=== PATIENT | female | born 1995 | race Two or more races ===

== ENCOUNTER 2018-01-03 13:14 | Observation (INO) | payer MEDICAID ==
[2018-01-03] MEDS ORDERED: NS 1,000 ML IV ONE (14:07)
[2018-01-03 14:14] LABS: PLATELET COUNT 237 10^3/uL (150-400)
--- NOTE | 2018-01-03 14:20 | EDPHY ---
HPI/HX/ROS/PE/MDM Narrative: CHIEF COMPLAINT: Vaginal bleeding - 17 weeks HISTORY OF PRESENT ILLNESS: The patient is a 22 y/o female, is G2, P1, 17 weeks , with a history of protein S deficiency complaining of vaginal bleeding, onset today. During her previous she had episodes of vaginal bleeding and was found to have protein S deficiency. She was placed on Lovenox injections for this as well as aspirin. During her current , she has had some spotting. She has also lost about [address] Slade at [facility] She was told that there was a placental abnormality which had account for some of her spotting, but was told that there were no abnormalities. She was told to take a baby aspirin but that Lovenox injections were not needed. This morning, she was on a walk when she felt herself start to bleed through her jeans. She is not aware of any passage of tissue. She reports associated lightheadedness. She has had a runny nose for several days but denies any other cold symptoms. She denies cramping or any other associated symptoms. She denies history of preeclampsia. No fever, chills, chest pain, shortness of breath, palpitations, vomiting, diarrhea, urinary complaints, headache. REVIEW OF SYSTEMS: A comprehensive 10 system review of systems is otherwise negative aside from elements mentioned in the history of present illness and medical decision making. PAST MEDICAL HISTORY: Protein S deficiency SOCIAL HISTORY: Partner at bedside, son at bedside, nonsmoker VITAL SIGNS: Reviewed by me GENERAL: Well-developed, well-nourished, resting comfortably in no respiratory distress. HEENT: Atraumatic. Eyes: No icterus, no injection. Mouth: moist mucous membranes. No erythema or lesions. Neck: supple with no adenopathy. LUNGS: Clear to auscultation bilaterally, no wheezes, rhonchi or rales. CARDIAC: Regular rate and rhythm, no rubs, murmurs or gallops. ABDOMEN: Soft, nontender, nondistended, bowel sounds normal. REPRODUCTIVE: Gravid uterus just below the umbilicus. Palpation of uterus causes patient to feel like there is increased bleeding. PELVIC: Normal external genitalia. Scant amount of watery, brown blood is coming from the os and is in the vaginal vault. No tissue. No clots. Os is open to fingertip only. BACK: No CVA tenderness. EXTREMITIES: No trauma. No edema. Range of motion is normal throughout. NEURO: Alert and oriented, grossly nonfocal. SKIN: Warm and dry, no rash. PSYCHIATRIC: Normal mentation, no agitation. ED Course: The patient presents with abrupt onset vaginal bleeding at 17 week . She denies passage of tissue or clots. She had to take Lovenox and aspirin in her previous but was instructed to take just aspirin for this . She has had some spotting in this due to an identified location on ultrasound. Pelvic exam -performed. Plan for CBC, basic metabolic panel, Beta-HCG, ABO/Rh typing, and ultrasound. Pelvic exam does not reveal any products of conception or clot. Patient's cervical os is closed at the time of this examination. Ultrasound was ordered. Patient is O positive. Quant is 52,[phone]. Patient's ultrasound demonstrates a marginal placental abruption with a large hematoma as well as fluid in the vaginal vault consistent with recent or acute placental abruption with bleeding. Patient currently remains hemodynamically stable. She does have increase in the bleeding with any palpation of the uterus or with standing. She also reports increased bleeding after ultrasound was performed. Her course was discussed with the on-call physician from her is support analyst practice, [facility]. Was also discussed with Dr. Garcia, on-call for OBGYN at [facility]. Patient remains hemodynamically stable at this point. She is at 17 weeks and understands that it is not a viable at this point. Patient would prefer to be admitted to the hospital for close observation regarding her ongoing bleeding. She was admitted to OBGYN service. MDM: Differential diagnoses for the patient's symptom complex was considered including but not limited to placental abruption, subchorionic hemorrhage, threatened miscarriage, completed miscarriage, spontaneous miscarriage, missed miscarriage, thromboembolic disease in . - Data Points Imaging Results: Imaging Impressions Obstetrics Ultrasound 01/03/18 14:42 Impression:1. Marginal placental abruption with recent vaginal blood. The cervix remains closed. 2. Single viable intrauterine in cephalic presentation. 3. Size consistent with dates. Results discussed with Dr. Sheree Null at 3:50 PM. Imaging: Discussed imaging studies w/ call taker Radiologist Laboratory Results: Laboratory Results 01/03/18 13:30 01/03/18 13:30 01/03/18 01/03/18 01/03/18 13:30 13:30 13:30 WBC 9.07 10^3/uL 10^3/uL (3.80-9.50) RBC 3.81 10^6/uL L 10^6/uL (4.18-5.33) Hgb 11.9 g/dL L g/dL (12.6-16.3) Hct 32.8 % L % (38.0-47.0) MCV 86.1 fL fL (81.5-99.8) MCH 31.2 pg pg (27.9-34.1) MCHC 36.3 g/dL g/dL (32.4-36.7) RDW 12.9 % % (11.5-15.2) Plt Count 237 10^3/uL 10^3/uL (150-400) MPV 11.2 fL fL (8.7-11.7) Neut % (Auto) 66.4 % % (39.3-74.2) Lymph % (Auto) 24.9 % % (15.0-45.0) [place] % (Auto) 6.9 % % (4.5-13.0) Eos % (Auto) 1.3 % % (0.6-7.6) Baso % (Auto) 0.2 % L % (0.3-1.7) Nucleat RBC Rel Count 0.0 % % (0.0-0.2) Absolute Neuts (auto) 6.01 10^3/uL 10^3/uL (1.70-6.50) Absolute Lymphs (auto) 2.26 10^3/uL 10^3/uL (1.00-3.00) Absolute Monos (auto) 0.63 10^3/uL 10^3/uL (0.30-0.80) Absolute Eos (auto) 0.12 10^3/uL 10^3/uL (0.03-0.40) Absolute Basos (auto) 0.02 10^3/uL 10^3/uL (0.02-0.10) Absolute Nucleated RBC 0.00 10^3/uL 10^3/uL (0-0.01) Immature Gran % 0.3 % % (0.0-1.1) Immature Gran # 0.03 10^3/uL 10^3/uL (0.00-0.10) Sodium 135 mEq/L mEq/L (135-145) Potassium 4.0 mEq/L mEq/L (3.3-5.0) Chloride 106 mEq/L mEq/L (97-110) Carbon Dioxide 18 mEq/l L mEq/l (22-31) Anion Gap 11 mEq/L mEq/L (6-14) BUN 9 mg/dL mg/dL (7-23) Creatinine 0.5 mg/dL L mg/dL (0.6-1.0) Estimated GFR > 60 Glucose 93 mg/dL mg/dL (70-100) Calcium 9.4 mg/dL mg/dL (8.5-10.4) Beta HCG, Quant 63619.00 mIU/mL H mIU/mL (0.00-4.83) Patient ABO/Rh O POSITIVE Medications Given: Discontinued Medications Sodium Chloride (Ns) 1,000 mls @ 0 mls/hr IV ONCE ONE; Wide Open PRN Reason: Protocol Stop: 01/03/18 14:08 Last Admin: 01/03/18 15:30 Dose: 1,000 mls General Time Seen by Provider: 01/03/18 13:55 Initial Vital Signs: Initial Vital Signs Temperature (C) 36.6 C 01/03/18 13:15 Heart Rate 106 H 01/03/18 13:15 Respiratory Rate 18 01/03/18 13:15 Blood Pressure 106/78 01/03/18 13:15 O2 Sat (%) 100 01/03/18 13:15 O2 Delivery Mode Room Air Allergies/Adverse Reactions: No Known Allergies Allergy (Verified 01/03/18 16:37) Home Medications: Medication Instructions Recorded Aspirin EC [Aspirin EC 81 mg (*)] 81 mg PO HS 01/03/18 Vit27&Calcium/Iron/FA 1 each PO HS 01/03/18 [ Rx 1 Tablet (RX)] Departure - Departure Disposition: [facility] Clinical Impression: Vaginal bleeding before 22 weeks gestation Placental abruption Qualifiers: Trimester: second trimester Qualified Code(s): O45.92 - Premature separation of placenta, unspecified, second trimester Condition: Fair Report Scribed for: Sheree Null Report Scribed by: Dora Owen Date of Report: 01/03/18 Time of Report: 15:18 Physician Review and Approval Statement: Portions of this note were transcribed by a site medical director. I personally performed a history, physical exam, medical decision making, and confirmed accuracy of information the transcribed note.
[2018-01-03 16:25] VITALS: BP 123/72
--- NOTE | 2018-01-03 18:17 | PDGENHP ---
History and Physical - Chief Complaint vaginal bleeding in - History of Present Illness 22 yo at 17w5d by LMP and 12 wk US per pt (no records available, as care with Dr. Slade at [facility]) who has been spotting her entire . She was last seen by her Food Counter Worker on 12/17/17 with spotting, and an ultrasound showed what sounds like a subchorionic hemorrhage. Today, she was walking in [place] and bled through her jeans. No cramping. Thinks she has felt some movement today. She was evaluated in the ED, and the ED physician recommended admission for observation. US in the ED showed: " Number: 1. motion is present. Presentation: Cephalic. Placental Location: Anterior. There is no placenta previa. There is a large hematoma adjacent to the anterior margin of the placenta consistent with a marginal abruption. There is echogenic fluid in the upper vagina consistent with recent hemorrhage. The cervix remains closed, measuring 3.5 cm. No retained cervical fluid is identified. There is no funneling of the internal os. JUSTIN = 11.2 cm. heart rate = 150 bpm. Biometry: Biparietal Diameter: 40 mm = 18 weeks 0 days, Head Circumference: 140 mm , 17 weeks 3 days Abdominal Circumference: 1119 mm, 17 weeks 4 days Femur Length: 24 mm, 17 weeks 3 days Impression:1. Marginal placental abruption with recent vaginal blood. The cervix remains closed. 2. Single viable intrauterine in cephalic presentation. 3. Size consistent with dates." Her is complicated by a Prot S deficiency. By her report - Saw MFM this and was told did not need to be on Lovenox, just baby ASA. Her previous - she was on Lovenox after being diagnosed with Prot S deficiency in . Ob hx: 40 week 12/10/12, was on Lovenox for most of the . O pos History Information - Allergies/Home Medication List Allergies/Adverse Reactions: No Known Allergies Allergy (Verified 01/03/18 16:37) Home Medications: Aspirin EC [Aspirin EC 81 mg (*)] 81 mg PO HS 01/03/18 [Last Taken 01/01/18] Vit27&Calcium/Iron/FA [ Rx 1 Tablet (RX)] 1 each PO HS [Last Taken 01/02/18] I have personally reviewed and updated: family history, medical history, social history, surgical history Past Medical History: Prot s Deficiency - Surgical History Additional surgical history: wisdom teeth - Family History Positive for: non-pertinent - Social History Smoking Status: Never smoked Alcohol Use: None Drug Use: None (has a significant other, works at [employer], child is 5 yr old) Review of Systems Review of Systems: ROS: 10pt was reviewed & negative except for what was stated in HPI & below Physical Exam Physical Exam: Temp Pulse Resp BP Pulse Ox 36.6 C 79 16 123/72 H 96 01/03/18 16:50 01/03/18 16:50 01/03/18 16:50 01/03/18 16:50 01/03/18 16:50 Constitutional: no apparent distress, appears nourished Eyes: PERRL Ears, Nose, Mouth, Throat: moist mucous membranes, hearing normal, ears appear normal Cardiovascular: regular rate and rhythym, no murmur, rub, or gallop Respiratory: no respiratory distress, no rales or rhonchi Gastrointestinal: normoactive bowel sounds, soft, non-tender abdomen (fundus firm at u-2cm c/w 17w5d) Genitourinary: no bladder fullness, other (peripad with some spotting on it over the past hour. ) Skin: warm, normal color Musculoskeletal: full muscle strength Neurologic: AAOx3, sensation intact bilaterally Psychiatric: interacting appropriately, not anxious Lab Data & Imaging Review 01/03/18 13:30 01/03/18 13:30 WBC 9.07 10^3/uL (3.80-9.50) 01/03/18 13:30 RBC 3.81 10^6/uL (4.18-5.33) L 01/03/18 13:30 Hgb 11.9 g/dL (12.6-16.3) L 01/03/18 13:30 Hct 32.8 % (38.0-47.0) L 01/03/18 13:30 MCV 86.1 fL (81.5-99.8) 01/03/18 13:30 MCH 31.2 pg (27.9-34.1) 01/03/18 13:30 MCHC 36.3 g/dL (32.4-36.7) 01/03/18 13:30 RDW 12.9 % (11.5-15.2) 01/03/18 13:30 Plt Count 237 10^3/uL (150-400) 01/03/18 13:30 MPV 11.2 fL (8.7-11.7) 01/03/18 13:30 Neut % (Auto) 66.4 % (39.3-74.2) 01/03/18 13:30 Lymph % (Auto) 24.9 % (15.0-45.0) 01/03/18 13:30 [place] % (Auto) 6.9 % (4.5-13.0) 01/03/18 13:30 Eos % (Auto) 1.3 % (0.6-7.6) 01/03/18 13:30 Baso % (Auto) 0.2 % (0.3-1.7) L 01/03/18 13:30 Nucleat RBC Rel Count 0.0 % (0.0-0.2) 01/03/18 13:30 Absolute Neuts (auto) 6.01 10^3/uL (1.70-6.50) 01/03/18 13:30 Absolute Lymphs (auto) 2.26 10^3/uL (1.00-3.00) 01/03/18 13:30 Absolute Monos (auto) 0.63 10^3/uL (0.30-0.80) 01/03/18 13:30 Absolute Eos (auto) 0.12 10^3/uL (0.03-0.40) 01/03/18 13:30 Absolute Basos (auto) 0.02 10^3/uL (0.02-0.10) 01/03/18 13:30 Absolute Nucleated RBC 0.00 10^3/uL (0-0.01) 01/03/18 13:30 Immature Gran % 0.3 % (0.0-1.1) 01/03/18 13:30 Immature Gran # 0.03 10^3/uL (0.00-0.10) 01/03/18 13:30 Sodium 135 mEq/L (135-145) 01/03/18 13:30 Potassium 4.0 mEq/L (3.3-5.0) 01/03/18 13:30 Chloride 106 mEq/L (97-110) 01/03/18 13:30 Carbon Dioxide 18 mEq/l (22-31) L 01/03/18 13:30 Anion Gap 11 mEq/L (6-14) 01/03/18 13:30 BUN 9 mg/dL (7-23) 01/03/18 13:30 Creatinine 0.5 mg/dL (0.6-1.0) L 01/03/18 13:30 Estimated GFR > 60 01/03/18 13:30 Glucose 93 mg/dL (70-100) 01/03/18 13:30 Calcium 9.4 mg/dL (8.5-10.4) 01/03/18 13:30 Beta HCG, Quant 40543.00 mIU/mL (0.00-4.83) H 01/03/18 13:30 Patient ABO/Rh O POSITIVE 01/03/18 13:30 Assessment & Plan Assessment: Placental abruption (Acute) Vaginal bleeding before 22 weeks gestation (Acute)
--- NOTE | 2018-01-04 06:48 | SOAPPROG ---
SOAP Progress Note Assessment/Plan: Assessment: 22 yo at 17w6d admitted for vaginal bleeding - has slowed overnight. 1cm spot of blood on pad in past 3-4 hours. Plan: DC home. FU with regular OB, Dr. Dean in [place] - to call the office tomorrow. May Garcia MD, FACOG [facility] 01/04/18 06:45 Subjective: Pt doing fine. Slept overnight. Got up to bathroom around 0300 and dripped some blood into the toilet, but only a tiny spot on pad since then. NO cramping. NO other changes. Objective: Vital Signs Temp Pulse Resp BP Pulse Ox 36.6 C 79 16 123/72 H 96 01/03/18 16:50 01/03/18 16:50 01/03/18 16:50 01/03/18 16:50 01/03/18 16:50 01/03/18 01/04/18 01/05/18 05:59 05:59 05:59 Intake Total 1000 Balance 1000 36.4 84 107/65 FHR 145 gen - pleasant, NAD CV - RRR chest - CTAB abd - fundus u-2, firm, NT back - no CVAT ext - no calf tenderness, no edema - Time Spent With Patient Time Spent With Patient: 10 min - Pending Discharge Pending Discharge Within 24 Hours: Yes Pending Discharge Within 48 Hours: Yes Pending Discharge Date: 01/05/18 Pending Discharge Time: 11:00 ICD10 Worksheet Patient Problems: Problems Problem Status Onset Placental abruption Acute Vaginal bleeding before 22 weeks gestation Acute
--- NOTE | 2018-01-04 06:59 | OBGCSDC ---
General Delivery Information - General Info : 2 Para: 1 Abortions: 0 Admission Date: 01/03/18 Labs: Patient ABO/Rh O POSITIVE 01/03/18 13:30 Hct 32.8 % (38.0-47.0) L 01/03/18 13:30 - Hospital Course Antepartum: 01/04/18 06:57 Pt was observed in L&D overnight. Had minimal spotting. From 3AM - 6:30AM - had only a 1 cm spot of blood on her pad. No cramping. Data BRANDON: 06/08/18 Gestational Age: 17 week(s) and 6 day(s) Discharge Information - Discharge Information Instruction/Follow Up: See Instruction Sheet (make an appointment with your regular Ob office - call tomorrow. Pelvic rest until then. )
== END 2018-01-04 07:46 | disposition home or self-care (01) ==
LOC: FLD 17:04
PROVIDERS: ADMIT Hospitalist; ATTEND Hospitalist
DX: O20.8 Other hemorrhage in early pregnancy (principal); O45.92 Premature separation of placenta, unspecified, second trimester; O99.112 Other diseases of the blood and blood-forming organs and certain disorders involving the immune mechanism complicating pregnancy, second trimester; D68.59 Other primary thrombophilia; E86.9 Volume depletion, unspecified; Z79.82 Long term (current) use of aspirin; Z3A.17 17 weeks gestation of pregnancy; Z23 Encounter for immunization
CPT/HCPCS: 76805; 90471; 96360; 99285; G0378; G0008